=== PATIENT | male | born 1945 | race Caucasian/White ===

== ENCOUNTER → 2020-07-04 14:50 | Outpatient (CLI) | payer MEDICARE, SELFPAY ==
--- NOTE | ~2020-07-04 | US_ITS ---
EXAMINATION: US soft tissue upper back DATE: 07/04/2020 15:31 INDICATION: Local swelling, mass and lump at the left upper back TECHNIQUE: Multiple grayscale and Doppler ultrasound images of the region of concern at the left uppe r back were obtained. COMPARISON: None FINDINGS: 7.1 x 3.7 x 6.6 cm mass at the region of concern. The mass is more echogenic peripherally with a cent ral more hypoechoic region with irregular margins. IMPRESSION: 1. Nonspecific 7.1 x 2.7 x 6.6 cm mass at the region of concern. Although statistically most likely t o represent a lipoma, given the size and atypical heterogeneous echogenicity other neoplasm including malignant cannot be excluded and would recommend further evaluation with either CT or preferably pre and postcontrast MRI for further evaluation. Reviewed, dictated and finalized at location A. 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 Nonspecific 7.1 x 2.7 x 6.6 cm mass at the region of concern. Although stati stically most likely to represent a lipoma, given the size and atypical heterog eneous echogenicity other neoplasm including malignant cannot be excluded and w ould recommend further evaluation with either CT or preferably pre and postcont rast MRI for further evaluation.
== END ==
PROVIDERS: PCP Family Medicine; Visit Provider Physician Assistant
DX: R22.2 Localized swelling, mass and lump, trunk (principal)
CPT/HCPCS: 76604

== ENCOUNTER → 2022-10-23 15:27 | Outpatient (CLI) | payer MEDICARE, SELFPAY ==
--- NOTE | ~2022-10-23 | XR_ITS ---
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 RESULT: Lines, tubes, and devices: None. Lungs and pleura: Diffuse mild reticulonodular opacities which may represent mild bronchiolitis. Cardiomediastinal silhouette: New left hilar mass. Other: No acute osseous or upper abdominal finding. IMPRESSION: New left hilar mass, concerning for neoplasm. Recommend CT of the chest with contrast for further freddie luation. Reviewed, dictated and finalized at location K. ETING ADMIN IMPRESSION: New left hilar mass, concerning for neoplasm. Recommend CT of the chest with co ntrast for further evaluation.
== END ==
PROVIDERS: PCP Family Medicine; Visit Provider Family Medicine
DX: R05.9 Cough, unspecified (principal); R91.8 Other nonspecific abnormal finding of lung field
CPT/HCPCS: 71046

== ENCOUNTER → 2022-11-12 15:45 | Outpatient (CLI) | payer MEDICARE, SELFPAY ==
--- NOTE | ~2022-11-12 | CT_ITS ---
Clinical Indication: Left hilar mass CT Scan of the Chest with Contrast: Technique: Contiguous sections were acquired throughout the chest after intravenous administration of 75 cc of Omnipaque 350. Dose reduction technique was used on this scan by utilizing automated exposu re control and iterative reconstruction technique. The dose-length product (DLP) was 156.29 mGy-cm. COMPARISON: 02/14/2004 Findings: There is a somewhat poorly delineated left upper lobe/left hilar mass, resulting in complete obstruct ion/cut off of the left upper lobe bronchus and associated complete left upper lobe collapse. Surroun ding atelectatic lung makes delineation of the underlying mass lesion difficult, but suspected mass m easures approximately 3.9 x 3.3 cm in transverse dimensions. Mass extends into the left hilum and als o significantly narrows, but does not occlude, the left lower lobe bronchus (axial image 58 for examp le). There is encasement and narrowing of the left upper lobar pulmonary artery branches. There is al so encasement and mild narrowing of the left lower lobar pulmonary artery branch. Left lower lobe demonstrates several probable tiny tree-in-bud opacities. Right lung is clear. There is mild to moderate emphysema in the right upper lobe. No other mediastinal or right hilar adenopathy seen. No large central pulmonary embolus. No aortic an eurysm or dissection. There are atherosclerotic calcifications of the aorta. No pleural or pericardial effusion. Images through the upper abdomen reveal no abnormalities. Impression: Left upper lobe/left hilar mass measuring approximately 3.9 x 3.3 cm, consistent with malignancy. The re is resultant cut off of the left upper lobe bronchus is complete left upper lobe collapse, as well as narrowing of the left lower lobe bronchus. Precise delineation of the mass is limited due to the adjacent atelectatic left upper lobe. Encasement and narrowing of the lobar level pulmonary arteries to the left lung. Several probable tiny tree-in-bud opacities in the left lower lobe, which could reflect focal areas o f mild small airways infection. Mild to moderate emphysema in the right upper lobe. Reviewed, dictated and finalized at location M. Impression: Left upper lobe/left hilar mass measuring approximately 3.9 x 3.3 cm, consisten t with malignancy. There is resultant cut off of the left upper lobe bronchus i s complete left upper lobe collapse, as well as narrowing of the left lower lob e bronchus. Precise delineation of the mass is limited due to the adjacent atel ectatic left upper lobe. Encasement and narrowing of the lobar level pulmonary arteries to the left lung . Several probable tiny tree-in-bud opacities in the left lower lobe, which could reflect focal areas of mild small airways infection. Mild to moderate emphysema in the right upper lobe.
[2022-11-12 16:02] LABS: Estimated Glomerular Filt Rate > 60
== END ==
PROVIDERS: PCP Family Medicine; Visit Provider Physician Assistant
DX: R91.8 Other nonspecific abnormal finding of lung field (principal)
CPT/HCPCS: 71260; Q9967

== ENCOUNTER 2022-12-04 13:43 | Outpatient (CLI) | payer MEDICARE, SELFPAY ==
--- NOTE | 2022-12-04 14:08 | ECG_ITS ---
Measurements Intervals [place] Rate: 84 P: 52 GA: 134 QRS: 26 QRSD: 106 T: 37 QT: 340 QTc: 404 Interpretive Statements SINUS RHYTHM POSSIBLE LEFT ATRIAL ENLARGEMENT [-0.1mV P WAVE IN V1/V2] NO PREVIOUS ECG AVAILABLE FOR COMPARISON Electronically Signed On 12-04-2022 16:28:50 CDT by Bay Gandhi M.D.
[2022-12-04 15:59] LABS: Basophils Percent Auto 0.2 % (0.2-1.2); Hematocrit 46.1 % (42.0-52.0); Hemoglobin 15.4 g/dL (14.0-18.0); Immature Granulocyte Absolute 0.08 K/mm3 (0.00-0.031); Immature Granulocyte Percent A 0.6 % (0-0.5); Lymphocytes Absolute Auto 1.85 K/mm3 (0.9-3.2); Lymphocytes Percent Auto 14.9 % (18.3-44.2); Mean Corpuscular HGB Conc 33.4 g/dl (32-36); Mean Corpuscular Hemoglobin 31.9 pg (26-34); Mean Corpuscular Volume 95.4 fl (80-100); Mean Platelet Volume 10.1 fl (7.4-10.4); Monocytes Absolute Auto 0.7 K/mm3 (0.1-0.6); Monocytes Percent Auto 5.4 % (2.6-8.5); Neutrophils Absolute Auto 9.8 K/mm3 (1.3-6.7); Neutrophils Percent Auto 78.9 % (45.5-73.1); Platelet Count Result 328 k/mm3 (150-375); Red Blood Count 4.83 M/mm3 (4.6-6.20); Red Cell Distribution Width 16.9 % (11.5-14.5); White Blood Count 12.4 K/mm3 (4.5-10.0)
[2022-12-04 16:09] LABS: INR 1.2; Prothrombin Time 14.4 Seconds (11.1-14.7)
[2022-12-04 16:13] LABS: Anion Gap 6 mmol/L (8-16); Blood Urea Nitrogen 14 mg/dL (9-20); Calcium 8.9 mg/dL (8.4-10.2); Carbon Dioxide 32 mmol/L (22-30); Chloride 99 mmol/L (98-107); Estimated Glomerular Filt Rate > 60; Glucose 149 mg/dL (65-110); Sodium 137 mmol/L (137-145)
== END 2022-12-04 13:44 | disposition home or self-care (01) ==
LOC: ANHSURGERY 13:58
PROVIDERS: Anesthesiology; PCP Family Medicine; Visit Provider Internal Medicine Pulmonary Disease
DX: R91.8 Other nonspecific abnormal finding of lung field (principal); Z01.818 Encounter for other preprocedural examination
CPT/HCPCS: 36415; 80048; 85025; 85610; 85730; 93005

== ENCOUNTER 2022-12-06 01:26 | Day surgery (SDC) | payer MEDICARE, SELFPAY ==
[2022-12-03 15:57] VITALS: BMI 20.5
[2022-12-06] VITALS (8 sets, daily range): BP systolic 87–122; BP diastolic 54–76; PULSE 66–95; RESP 12–26; TEMP 36.3–36.4; O2SAT 96–100; BMI 19.5
--- NOTE | ~2022-12-06 | XR_ITS ---
EXAMINATION: XR chest 1V portable DATE: 12/06/2022 12:50 INDICATION: Left lung mass status post bronchoscopy. TECHNIQUE: A single frontal view of the chest was obtained. COMPARISON: Chest 2 views at 10:40 AM FINDINGS: There is a left hilar mass with collapse of left lung upper lobe. No pleural effusion or pn eumothorax. The heart size is normal. IMPRESSION: 1. Left hilar mass with left upper lobe collapse again seen, consistent with primary bronchogenic car cinoma. Reviewed, dictated and finalized at location A. IMPRESSION: 1. Left hilar mass with left upper lobe collapse again seen, consistent with pr imary bronchogenic carcinoma.
--- NOTE | ~2022-12-06 | XR_ITS ---
EXAMINATION: XR chest 2V DATE: 12/06/2022 10:44 INDICATION: Lung mass. TECHNIQUE: Frontal and lateral views of the chest were obtained. COMPARISON: Chest 2 views 10/23/2022, chest CT 11/12/2022 FINDINGS: There is a left hilar mass with left upper lobe collapse. No pleural effusion or pneumothor ax. The heart size is normal. IMPRESSION: 1. Left hilar mass with left upper lobe collapse again seen, consistent with primary bronchogenic car cinoma. Reviewed, dictated and finalized at location A. IMPRESSION: 1. Left hilar mass with left upper lobe collapse again seen, consistent with pr imary bronchogenic carcinoma.
--- NOTE | 2022-12-06 10:45 | PM.IMHP ---
H&P: HPI History of Present Illness Date/Time: 12/06/22 10:45 Chief Complaint: Patient presents today for outpatient bronchoscopy Narrative: 12/06/2022: Patient was seen in the clinic on 12/04/2022 for a left lung mass. outpatient bronchoscopy was scheduled for 12/06/2022. today the patient tells me that he has no fever, chills, rigors, phlegm production or chest pains. He has not eaten any food today. He states his breathing is at his baseline. Prior visits 12/04/2022:? This is a new pulmonary clinic encounter for left lung mass. 77-year-old with a history of rheumatoid arthritis, BPH, peripheral vascular disease, elevated PSA referred by Dr. Ehsan Guy for left lung mass.? ? Patient is under the care of a interface analyst for his RA in [place]. he was diagnosed at age 10.? He was on prednisone and methotrexate ? For about 2-3 years and over the last 5 years he has been on Xeljanz and this has controlled his symptoms. ? He takes prednisone 5 mg a day p.r.n. bad days and he has taken this 1 time in the last 3-4 weeks. Patient was seen on 10/08/[address] Guy and? complained of 3 months productive cough with sinus congestion and drainage.? Smoked half a pack a day for 60 years.? Room air saturations 95% no inhaled respiratory medicines listed rhonchi left upper, right upper and left lower.? Chest x-ray was ordered and performed on 10/23/2022 and compared to 05/30/2006 and there was a new left hilar mass.? CT scan with contrast of the chest performed on 11/13/2022 with moderate apical predominant paraseptal emphysema, left hilar and left upper lobe mass with obstruction and collapse of the left upper lobe and encasement and narrowing of the left main pulmonary aertery. Difficult to measure the size of the mass with the complete atelectasis of the left upper lobe.? I reviewed images with radiologist and there were no axillary, supraclavicular or subcarinal lymph nodes.? No hepatic or adrenal masses. Today tells me that?? Over the last 3 months he has had wheezing, gurgling and sinus drainage.? He has had no hospitalizations or emergency department visits for COPD and never has been formally diagnosed with COPD. ? he has activity limitations to 1/2 a block and this is related to foot and hip pain on the right but no shortness of breath.? He has never been on inhalers.? One month ago he took a Z-Yared for his congestion and this helped his cough and phlegm production.? ? Patient denies wheezing or hemoptysis. Patient states he has lost 2-3 lb in the last 2-3 months.? Patient takes as a last in p.r.n. for sinus congestion and Tessalon Perles 100 mg 1 to 2 times a week for cough. Patient states he has noticed upper extremity clubbing for the last 5 years and attributes this to his rheumatoid arthritis.? Patient smokes 3/4 of a pack from age 16 to current for a total of 45 pack years.? Now he is smoking half a pack.? Patient was exposed to secondhand smoke from his until 2017.? 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 He did work in the [employer] during the summer in the 1960s.? He denies stand blasting welding, asbestos were, professional painting.? Patient was exposed to Agent [place] in the [place] War. Patient will be returning to [place] on 12/16/2022. ? Patient's CAT score today is 7 DATA: 11/13/2022: Clinical Indication: Left hilar mass ?CT Scan of the Chest with Contrast: ?COMPARISON: 02/14/2004 ?Findings: ?There is a somewhat poorly delineated left upper lobe/left hilar mass, resulting in complete obstruction/cut off of the left upper lobe bronchus and associated complete left upper lobe collapse. Surrounding atelectatic lung makes delineation of the underlying mass lesion difficult, but suspected mass measures approximately 3.9 x 3.3 cm in transverse dimensions. Mass extends into the left hilum and also significantly narrows, but does not occlude, the left lower lobe bronchus (axial i
[2022-12-06] MEDS: LACTATED RINGERS 1,000 ML 150 ML IV CONT (11:17)
--- NOTE | 2022-12-06 11:46 | WPDANESEPPF ---
Anes - Initial Pre Proc Eval Procedure: Operation Date: 12/06/22 12:15 Proposed Procedures p Flexible Bronchoscopy With Fluoro - French Fernando MD Date/Time: 12/06/22 11:46 Surgeon: French Fernando MD Pre Op Diagnosis: Lung Mass Patient Data Age: 77 Gender: M Height: 1.75 m Weight: 60 kg Last Vital Signs Temp 97.3 F L 12/06/22 10:45 Pulse 95 12/06/22 10:45 Resp 18 12/06/22 10:45 BP 122/76 12/06/22 10:45 Allergies Allergy/AdvReac Type Severity Reaction Status Date / Time iodine Allergy Intermediate rash Verified 12/03/22 16:01 mushroom Allergy Intermediate Other Verified 12/03/22 16:01 shellfish derived Allergy Intermediate Rash Verified 12/03/22 16:01 acetaminophen [From Tylenol] AdvReac Intermediate Nausea and Verified 12/03/22 16:03 Vomiting Home Medications Medication Instructions Recorded Confirmed Type aspirin 325 mg tablet 325 mg PO DAILY 09/22/19 12/04/22 History fluticasone propionate 50 2 spray intranasal DAILY PRN 09/22/19 12/04/22 History mcg/actuation nasal Allergy Symptoms spray,suspension (Children's Flonase Allergy Relief) naproxen 500 mg tablet 500 mg PO HS 09/22/19 12/04/22 History tadalafil 20 mg tablet (Cialis) 20 mg PO DAILY PRN Erectile 09/22/19 12/04/22 History Dysfunction tofacitinib 5 mg tablet (Xeljanz) 5 mg PO BID 09/22/19 12/04/22 History benzonatate 100 mg capsule 100 mg PO TID PRN cough #30 caps 11/01/22 12/04/22 Rx diphenhydramine HCl 50 mg capsule 50 mg PO ONCE #1 cap 11/02/22 12/04/22 Rx azelastine 137 mcg (0.1 %) nasal 1 spray intranasal Q12H PRN 12/03/22 12/04/22 History spray aerosol Allergy Symptoms diphenhydramine HCl 25 mg capsule 25 mg PO BID PRN Cough 12/03/22 12/04/22 History (Benadryl) multivit with minerals-iron 18 1 tablet PO DAILY 12/03/22 12/04/22 History mg-folic ac 400 mcg-vit K 25 mcg tablet (Adults Multivitamin) prednisone 5 mg tablet 5 mg PO DAILY 12/03/22 12/04/22 History albuterol sulfate 90 mcg/actuation 2 inh inhalation Q4H PRN shortness 12/04/22 12/04/22 Rx aerosol inhaler of breath or wheezing #8.5 grams nica (Zingiber officinalis) 250 250 mg PO DAILY 12/04/22 12/04/22 History mg capsule tiotropium 2.5 mcg-olodaterol 2.5 2 puff inhalation DAILY #4 grams 12/04/22 12/04/22 Rx mcg/actuation mist for inhalation Patient hx anesthesia problems: none Family hx anesthesia problems: none Results Review: All pre-operative results and documents have been reviewed as part of the pre-operative evaluation. [facility] Surgical History Surgical History Hammer toe History of abdominal hernia History of right inguinal hernia repair History of shoulder surgery Retinal detachment twice Social History Social History Smoking packs per day: 0.5 Smoking cigarettes per day: 10.0 Years smoked: 60 Smoking pack-years: 30.00 Smoking status: Current every day smoker Tobacco type: cigarettes Second hand tobacco smoke exposure: No Alcohol intake: current Drinks per week: 16 Alcohol use details: [place] Substance use: never Substance use type: does not use Living arrangements: with family Occupation/Education: retired Gender identity (if verbalized by the patient): Female Sexual Orientation (if Verbalized by the Patient): Straight or Heterosexual Spiritual care concerns: No Anes - Eval Final PreProcedure Day of Procedure 12/06/22 11:46 Patient weight: normal Heart: regular rate and rhythm Lungs: clear to auscultation Airway: Mallampati scale class III Neurological: alert and oriented Last oral intake: >/= 8 hours ASA classification: IV Emergent: no Anesthetic plan: proceed Anesthesia type and monitoring: general GIVS and LMA and standard monitoring Results Review: All pre-operative results and documents have been reviewed as part of the pre-oper
--- NOTE | 2022-12-06 13:47 | SUR.OPER ---
Exalt Model B 5.8 mm scope LOT [id number]
== END 2022-12-06 13:47 | disposition home or self-care (01) ==
PROVIDERS: PCP Family Medicine; Visit Provider Internal Medicine Pulmonary Disease
PROC: BB1DZZZ Fluoroscopy of Upper Airways (ICD-10-PCS; CPT 31624; principal; 2022-12-06 12:00)
DX: C34.12 Malignant neoplasm of upper lobe, left bronchus or lung (principal); M06.9 Rheumatoid arthritis, unspecified; I73.9 Peripheral vascular disease, unspecified; N40.0 Benign prostatic hyperplasia without lower urinary tract symptoms; F17.210 Nicotine dependence, cigarettes, uncomplicated; Z79.51 Long term (current) use of inhaled steroids; Z79.82 Long term (current) use of aspirin
CPT/HCPCS: 31625; 31623; 36415; 71045; 71046; 80048; 85025; 85610; 85730; 88108; 88160; 88305; 88313; 88342; 93005; J1100; J2250; J2405; J2704; J3010; J7120

== ENCOUNTER 2023-09-17 15:50 | Outpatient (CLI) | payer MEDICARE, SELFPAY ==
[2023-09-17 16:04] LABS: Basophils Absolute Auto 0.1 K/mm3 (0.0-0.1); Basophils Percent Auto 0.8 % (0.2-1.2); Hematocrit 40.6 % (42.0-52.0); Hemoglobin 13.2 g/dL (14.0-18.0); Immature Granulocyte Absolute 0.09 K/mm3 (0.00-0.031); Immature Granulocyte Percent A 0.8 % (0-0.5); Lymphocytes Absolute Auto 1.27 K/mm3 (0.9-3.2); Lymphocytes Percent Auto 11.6 % (18.3-44.2); Mean Corpuscular HGB Conc 32.5 g/dl (32-36); Mean Corpuscular Hemoglobin 29.5 pg (26-34); Mean Corpuscular Volume 90.8 fl (80-100); Mean Platelet Volume 9.6 fl (7.4-10.4); Monocytes Absolute Auto 1.4 K/mm3 (0.1-0.6); Monocytes Percent Auto 12.7 % (2.6-8.5); Neutrophils Absolute Auto 8.1 K/mm3 (1.3-6.7); Neutrophils Percent Auto 74.1 % (45.5-73.1); Platelet Count Result 254 k/mm3 (150-375); Red Blood Count 4.47 M/mm3 (4.6-6.20); Red Cell Distribution Width 18.1 % (11.5-14.5); White Blood Count 10.9 K/mm3 (4.5-10.0)
[2023-09-17 16:39] LABS: Alanine Aminotransferase 32 U/L (6-50); Albumin Level 3.4 g/dL (3.5-5.1); Alkaline Phosphatase 76 U/L (38-126); Anion Gap 4 mmol/L (8-16); Aspartate Amino Transferase 36 U/L (17-59); Bilirubin,Total 0.5 mg/dL (0.2-1.3); Blood Urea Nitrogen 14 mg/dL (9-20); Calcium 9.2 mg/dL (8.4-10.2); Carbon Dioxide 32 mmol/L (22-30); Chloride 106 mmol/L (98-107); Estimated Glomerular Filt Rate > 60; Glucose 72 mg/dL (65-110); Sodium 142 mmol/L (137-145)
== END 2023-09-17 15:51 | disposition home or self-care (01) ==
LOC: ANHLAB 15:53
PROVIDERS: PCP Family Medicine; Visit Provider Internal Medicine Hematology & Oncology
DX: C34.90 Malignant neoplasm of unspecified part of unspecified bronchus or lung (principal)
CPT/HCPCS: 36415; 80053; 85025

== ENCOUNTER 2023-11-13 18:31 | Emergency (ER) | payer MEDICARE, OTHER, SELFPAY ==
--- NOTE | 2023-11-13 18:40 | ED.SKABFB ---
HPI - Skin/Abscess/Foreign Bdy General Stated complaint: Left Arm Laceration Time Seen by Provider: 11/13/23 18:40 Source: patient Mode of arrival: ambulatory Limitations: no limitations History of Present Illness HPI narrative: 78 yo M presents with skin tear to L forearm. Pt states he was getting out of his tub early this morning and slipped and fell. Hit L forearm on concrete. Denies hitting head. Was able to get up on his own. Ambulatory into express care with cane. States tetanus UTD. All systems reviewed and negative except as noted above. Related Data Home Medications Medication Instructions Recorded Confirmed fluticasone propionate 50 2 spray intranasal DAILY PRN 09/22/19 11/13/23 mcg/actuation nasal Allergy Symptoms spray,suspension (Children's Flonase Allergy Relief) naproxen 500 mg tablet 500 mg PO HS 09/22/19 11/13/23 tadalafil 20 mg tablet (Cialis) 20 mg PO DAILY PRN Erectile 09/22/19 11/13/23 Dysfunction tofacitinib 5 mg tablet (Xeljanz) 5 mg PO BID 09/22/19 11/13/23 azelastine 137 mcg (0.1 %) nasal 1 spray intranasal Q12H PRN 12/03/22 11/13/23 spray aerosol Allergy Symptoms multivit with minerals-iron 18 1 tablet PO DAILY 12/03/22 11/13/23 mg-folic ac 400 mcg-vit K 25 mcg tablet (Adults Multivitamin) prednisone 5 mg tablet 5 mg PO DAILY PRN sob 12/03/22 11/13/23 nica (Zingiber officinalis) 250 250 mg PO DAILY 12/04/22 11/13/23 mg capsule methylprednisolone 4 mg tablets in 4 mg PO DAILY 11/13/23 11/13/23 a dose pack Allergies Allergy/AdvReac Type Severity Reaction Status Date / Time iodine Allergy Intermediate rash Verified 11/13/23 18:35 mushroom Allergy Intermediate Other Verified 11/13/23 18:35 shellfish derived Allergy Intermediate Rash Verified 11/13/23 18:35 acetaminophen [From Tylenol] AdvReac Intermediate Nausea and Verified 11/13/23 18:35 Vomiting Review of Systems Review of Systems: CONSTITUTIONAL: Denies fever, chills, or sweats. EYES: Denies visual changes, redness, or discharge. ENT: Denies rhinorrhea, congestion, sore throat, or otalgia. CARDIOVASCULAR: Denies chest pain, palpitations, or edema. RESPIRATORY: Denies cough or dyspnea. GASTROINTESTINAL: Denies abdominal pain, nausea, vomiting, or diarrhea. GENITOURINARY: Denies dysuria or hematuria. SKIN: Denies rash or itching. Reports skin tear to left forearm. MUSCULOSKELETAL: Denies back pain, joint pain, or myalgia. NEUROLOGIC: Denies headache, numbness, or weakness. PSYCHIATRIC: Denies anxiety or depression. All other systems reviewed are negative, except as documented in HPI. [facility] Past Medical History Medical History (Updated 11/13/23 @ 19:05 by Anna Cee NP) Low testosterone Squamous cell lung cancer Surgical History Surgical History Hammer toe History of abdominal hernia History of right inguinal hernia repair History of shoulder surgery Retinal detachment twice Social History Social History Smoking packs per day: 0.5 Smoking cigarettes per day: 10.0 Years smoked: 60 Smoking pack-years: 30.00 Smoking status: Former smoker Tobacco type: cigarettes Second hand tobacco smoke exposure: No Alcohol intake: current Drinks per week: 16 Alcohol use details: [place] Substance use: never Substance use type: does not use Living arrangements: with family Occupation/Education: retired Gender identity (if verbalized by the patient): Female Sexual Orientation (if Verbalized by the Patient): Straight or Heterosexual Spiritual care concerns: No Comments At time of signature, agree with nursing past medical, surgical, social and family history. There is no relevant family history pertinent to the presenting complaint. Exam Narrative: GENERAL: This is a well-nourished, well-developed patient, in no apparent distress. HEAD: normoce
[2023-11-13 18:45] VITALS: BP 118/61; PULSE 88; RESP 16; TEMP 36.8; O2SAT 99
== END 2023-11-13 19:05 | disposition home or self-care (01) ==
PROVIDERS: Emergency Provider Nurse Practitioner Family; PCP Family Medicine
DX: S51.812A Laceration without foreign body of left forearm, initial encounter (principal); W01.0XXA Fall on same level from slipping, tripping and stumbling without subsequent striking against object, initial encounter; Z85.118 Personal history of other malignant neoplasm of bronchus and lung; Z87.891 Personal history of nicotine dependence
CPT/HCPCS: 99212; G0463

== ENCOUNTER 2023-11-18 13:37 | Outpatient (CLI) | payer MEDICARE, OTHER, SELFPAY ==
--- NOTE | ~2023-11-18 | CT_ITS ---
EXAMINATION:CT diagnostic chest wo con DATE: 11/18/2023 14:00 INDICATION: Malignant neoplasm of lung. TECHNIQUE: Computed tomography (CT) of the chest was performed without intravenous contrast. Automate d exposure control and iterative reconstruction technique were employed. The dose-length product (DLP ) was 138.33 mGy-cm. COMPARISON: Chest CT 11/12/2022 FINDINGS: There is moderate emphysema. There is perihilar radiation fibrosis in left lung. There are nodules in anterior segment left upper lobe. No pleural effusion. The heart size is normal. There are coronary artery calcifications. There is a small pericardial effusion. The spleen is small. There is levoscoliosis of cervicothoracic spine and dextroscoliosis of thoracic spine. There is severe cervic al and thoracic spondylosis. IMPRESSION: 1. No evidence of metastatic disease. 2. Perihilar radiation fibrosis in left lung. Nodules in anterior segment left upper lobe may be pneu monia or radiation pneumonitis. 3. Moderate emphysema. Reviewed, dictated and finalized at location E. IMPRESSION: 1. No evidence of metastatic disease. 2. Perihilar radiation fibrosis in left lung. Nodules in anterior segment left upper lobe may be pneumonia or radiation pneumonitis. 3. Moderate emphysema.
== END 2023-11-18 13:38 | disposition home or self-care (01) ==
PROVIDERS: PCP Family Medicine; Visit Provider Internal Medicine Hematology & Oncology
DX: C34.90 Malignant neoplasm of unspecified part of unspecified bronchus or lung (principal); J43.9 Emphysema, unspecified; R91.8 Other nonspecific abnormal finding of lung field
CPT/HCPCS: 71250